=== PATIENT | female | born 2000 | race Two or more races ===

== ENCOUNTER 2022-04-27 09:28 | Emergency (ER) | payer BC, OTHER ==
[~2022-04-27] VITALS: Ht 154.9 cm; Wt 55.3 kg
[2022-04-27 09:33] VITALS: BP 116/58
--- NOTE | 2022-04-27 09:41 | NUR ---
PT AMBULATED TO ER BED 3
--- NOTE | 2022-04-27 09:55 | NUR ---
INITAL CONTACT WITH PATIENT. PT REPORTS SYNCOPAL EPISODE DURING SHOWER THIS MORNING. REPORTS WAKING UP NEXT TO TOILET AND UNABLE TO RECALL EVENTS. PT IS NOW ALERT TO NAME, BIRTHDAY, SITUATION, AND EVENT. IN BED 3 PENDING MSE.
--- NOTE | 2022-04-27 11:10 | NUR ---
DR KRYSTIAN HUANG FOR MSE.
[2022-04-27] MEDS: NACL 0.9% 1,000 ML IV ONE (11:37)
--- NOTE | 2022-04-27 11:43 | NUR ---
RETURNED FROM CT - ALL QUESTIONS ANSWERED. PT VERBALIZES COMFORT AND DOES NOT REQUIRE ANY NEEDS AT THIS TIME. IVF INFUSING WITH OUT INCIDENT.
[2022-04-27 11:51] LABS: APPEARANCE,URINE SL CLOUDY (CLEAR); BILIRUBIN,URINE NEGATIVE (NEGATIVE); BLOOD, URINE TRACE-I (NEGATIVE); COLOR,URINE YELLOW (YELLOW); LEUKOCYTE ESTERASE ,URINE TRACE (NEGATIVE); NITRITE, URINE NEGATIVE (NEGATIVE); UGLUCOSE NEGATIVE (NEGATIVE)
[2022-04-27 11:58] LABS: ALBUMIN 4.1 g/dL (3.4-5.0); ANION GAP 11.4 (8-16); CARBON DIOXIDE 26.6 mmol/L (21-32); CREATININE 0.7 mg/dL (0.6-1.3); TOTAL BILIRUBIN 0.4 mg/dL (0.0-1.0)
[2022-04-27 12:02] LABS: OTHER CASTS, URINE None Seen /LPF (None Seen); RBC,URINE 0-5 /HPF (0-5); WBC,URINE 0-5 /HPF (0-5); YEAST,URINE Few /HPF (None Seen)
[2022-04-27] MEDS ORDERED: CRUSHER, PILL MC ONE (13:16)
[2022-04-27] MEDS: FLUCONAZOLE 100 MG TAB PO ONE (13:19)
[2022-04-27] MEDS: LIDOCAINE MPF 1% 10 MG/ML VIAL INJ ONE (13:36)
--- NOTE | 2022-04-27 14:24 | NUR ---
PT MOVED TO CHAIR A
[2022-04-27 15:35] LABS: BASOPHILS % (AUTO) 0.4 % (0.0-2.0); HEMATOCRIT 37.5 % (36-48); HEMOGLOBIN 12.5 g/dL (12.0-16.0); LYMPHOCYTES # (AUTO) 0.3 K/uL (2.5-16.5); LYMPHOCYTES % (AUTO) 12.4 % (20.5-51.1); MEAN CORPUSCULAR HEMOGLOBIN 29 pg (27-31); MEAN CORPUSCULAR HGB CONC 33 g/dL (33-37); MEAN CORPUSCULAR VOLUME 87.7 fL (80-94); MONOCYTES # (AUTO) 0.2 K/uL (0.8-1.0); MONOCYTES % (AUTO) 8.6 % (1.7-9.3); NEUTROPHILS # (AUTO) 2.1 K/uL (1.8-7.7); NEUTROPHILS % (AUTO) 78.6 % (42.2-75.2); PLATELET COUNT (AUTO) 161 K/uL (140-450); RED BLOOD CELL COUNT(AUTO) 4.28 MIL/uL (4.20-5.40); RED CELL DISTRIBUTION WIDTH 13.5 % (11.6-13.7); WHITE BLOOD COUNT (AUTO) 2.7 K/uL (4.5-11.0)
--- NOTE | 2022-04-27 15:50 | NUR ---
IV removed, catheter intact and site benign. Applied folded 4x4 gauze and tape to stop bleeding.
[2022-04-27 15:51] VITALS: BP 131/68
--- NOTE | 2022-04-27 15:51 | NUR ---
Patient discharged with v/s stable. Written and verbal after care instructions ABOUT [facility] given and explained. Patient verbalized understanding. Ambulatory with steady gait. All questions addressed prior to discharge. Advised to follow up with PMD.
== END 2022-04-27 15:51 | disposition home or self-care (01) ==
LOC: MED 09:28
DX: S01.111A Laceration without foreign body of right eyelid and periocular area, initial encounter (principal); R55 Syncope and collapse; R50.9 Fever, unspecified; X58.XXXA Exposure to other specified factors, initial encounter; Y93.89 Activity, other specified; Y92.89 Other specified places as the place of occurrence of the external cause; Y99.8 Other external cause status
CPT/HCPCS: 12011; 36415; 70450; 80053; 81001; 81025; 85025; 87086; 93005; 96360; 99285; J2001; J7030